=== PATIENT | female | born 1985 | race Asian ===

== ENCOUNTER 2018-05-10 03:25 | Emergency (ER) | payer MEDICAID ==
[~2018-05-10] VITALS: Ht 157.5 cm; Wt 65.0 kg
[2018-05-10 03:31] VITALS: BP 199/123
== END 2018-05-10 04:10 | disposition home or self-care (01) ==
LOC: ER 03:26
DX: S60.444A External constriction of right ring finger, initial encounter (principal); Z98.890 Other specified postprocedural states; W22.8XXA Striking against or struck by other objects, initial encounter; Y93.89 Activity, other specified; Y92.89 Other specified places as the place of occurrence of the external cause; Y99.9 Unspecified external cause status
CPT/HCPCS: 99284